=== PATIENT | female | born 1965 | race African-American/Black ===

== ENCOUNTER 2018-02-19 14:13 | Emergency (ER) | payer BC, OTHER ==
[~2018-02-19] VITALS: Ht 162.6 cm; Wt 99.2 kg
[2018-02-19 14:41] VITALS: BP 150/97
[2018-02-19 20:16] LABS: CHLORIDE 105 mEq/L (98-107)
[2018-02-19] MEDS ORDERED: IOHEXOL-300 100 ML BOTTLE ONE (22:03)
[2018-02-19 22:10] LABS: BASOPHILS % 0.4 % (0.0-2.0); EOSINOPHILS % 2.6 % (0.0-5.0); HEMATOCRIT. 38.3 % (36.0-48.0); HEMOGLOBIN. 12.5 g/dL (12.0-16.0); LYMPHOCYTES % 24.1 % (20.0-50.0); MEAN CORPUSCULAR VOLUME 89.1 fL (81.0-99.0); MEAN PLATELET VOLUME 7.7 fl (7.4-10.4); NEUTROPHILS % 68.9 % (40.0-76.0); PLATELET 219 x1000/uL (130-400); RED CELL DISTRIBUTION WIDTH 16.3 % (11.6-14.6)
== END 2018-02-20 01:00 | disposition home or self-care (01) ==
LOC: ER 14:13
DX: K02.9 Dental caries, unspecified (principal); I10 Essential (primary) hypertension; Z88.6 Allergy status to analgesic agent; Z90.710 Acquired absence of both cervix and uterus
CPT/HCPCS: 36415; 70487; 71045; 80048; 85025; 99285; Q9967; Z7610